=== PATIENT | female | born 1950 | race Caucasian/White ===

== ENCOUNTER 2018-06-21 16:05 | Emergency (ER) | payer OTHER ==
--- NOTE | 2018-06-21 16:45 | ER Document Report ---
ED Medical Screen (RME) - General Chief Complaint: Cold Symptoms Stated Complaint: COUGH,CONGESTION Time Seen by Provider: 06/21/18 16:42 Primary Care Provider: TIFFANY HAWK PA-C [Primary Care Provider] - Follow up as needed Notes: 67-year-old female coming in today with acute onset subjective fevers, chills, body aches, severe fatigue, cough that is not productive. Symptoms similar to this about a week ago. I have treated and performed a rapid initial assessment of this patient. A comprehensive ED assessment and evaluation of the patient, analysis of test results and completion of medical decision making process will be conducted by additional ED providers. PHYSICAL EXAMINATION: GENERAL: Malaised appearance LUNGS: Breath sounds clear to auscultation bilaterally and equal. No wheezes rales or rhonchi. HEART: Regular rate and rhythm without murmurs, rubs, gallops. ABDOMEN: Nontender abdomen Extremities: No cyanosis, clubbing, or edema b/l. NEUROLOGICAL: Normal speech, normal gait. PSYCH: Normal mood, normal affect. TRAVEL OUTSIDE OF THE [place] IN LAST 30 DAYS: No - Related Data Allergies/Adverse Reactions: aspirin [Aspirin] Allergy (Severe, Verified 08/03/14 17:22) Severe GI upset Past Medical History - Past Medical History Cardiac Medical History: Denies: Hx Coronary Artery Disease, Hx Heart Attack, Hx Hypertension Pulmonary Medical History: Denies: Hx Asthma, Hx Bronchitis, Hx COPD, Hx Pneumonia Neurological Medical History: Denies: Hx Cerebrovascular Accident, Hx Seizures Musculoskeltal Medical History: Reports Hx Arthritis - Fingers, hands - Immunizations Hx Diphtheria, Pertussis, Tetanus Vaccination: No Physical Exam - Vital signs Vitals: Temp Pulse Resp BP Pulse Ox 98.8 F 103 H 20 107/72 95 06/21/18 16:18 06/21/18 16:18 06/21/18 16:18 06/21/18 16:18 06/21/18 16:18 Course - Vital Signs Vital signs: Temp Pulse Resp BP Pulse Ox 98.8 F 103 H 20 107/72 95 06/21/18 16:18 06/21/18 16:18 06/21/18 16:18 06/21/18 16:18 06/21/18 16:18 Doctor's Discharge - Discharge Referrals: TIFFANY HAWK PA-C [Primary Care Provider] - Follow up as needed
[2018-06-21 17:17] LABS: ABSOLUTE EOSINOPHILS # (AUTO) 0.1 10^3/uL (0.0-0.6); ABSOLUTE LYMPHOCYTES (AUTO) 1.1 10^3/uL (0.5-4.7); ABSOLUTE MONOCYTES (AUTO) 1.1 10^3/uL (0.1-1.4); ABSOLUTE NEUT (AUTO) 17.5 10^3/uL (1.7-8.2); BASOPHILS % (AUTO) 0.2 % (0-2); EOSINOPHILS % (AUTO) 0.4 % (0-6); HEMATOCRIT 40.4 % (36.0-47.0); HEMOGLOBIN 13.6 g/dL (12.0-15.5); LYMPHOCYTES % (AUTO) 5.4 % (13-45); MEAN CORPUSCULAR HEMOGLOBIN 30.1 pg (27.0-33.4); MEAN CORPUSCULAR HGB CONC 33.6 g/dL (32.0-36.0); MEAN CORPUSCULAR VOLUME 90 fl (80-97); MONOCYTES % (AUTO) 5.5 % (3-13); PLATELET COUNT 434 10^3/uL (150-450); RED BLOOD COUNT 4.51 10^6/uL (3.72-5.28); RED CELL DISTRIBUTION WIDTH 12.8 % (11.5-14.0); SEGMENTED NEUTROPHILS % (AUTO) 88.5 % (42-78); TOTAL CELLS COUNTED % (AUTO) 100 %; WHITE BLOOD COUNT 19.7 10^3/uL (4.0-10.5)
[2018-06-21 17:35] LABS: ALANINE AMINOTRANSFERASE 27 U/L (9-52); ALBUMIN 3.9 g/dL (3.5-5.0); ALKALINE PHOSPHATASE 103 U/L (38-126); ANION GAP 11 (5-19); ASPARTATE AMINO TRANSFERASE 31 U/L (14-36); BILIRUBIN,DIRECT 0.3 mg/dL (0.0-0.4); BILIRUBIN,TOTAL 0.7 mg/dL (0.2-1.3); BLOOD UREA NITROGEN 21 mg/dL (7-20); CALCIUM 9.3 mg/dL (8.4-10.2); CARBON DIOXIDE 28 mmol/L (22-30); CHLORIDE 101 mmol/L (98-107); GLUCOSE 108 mg/dL (75-110); POTASSIUM 4.3 mmol/L (3.6-5.0); SODIUM 139.9 mmol/L (137-145); TOTAL PROTEIN 7.1 g/dL (6.3-8.2)
[2018-06-21 17:36] LABS: A TYPE INFLUENZA AG NEGATIVE (NEGATIVE); B INFLUENZA AG NEGATIVE (NEGATIVE)
--- NOTE | 2018-06-21 17:41 | RADIOLOGY REPORT (SQ) ---
EXAM DESCRIPTION: CHEST 2 VIEWS COMPLETED DATE/TIME: 06/21/2018 5:15 pm REASON FOR STUDY: dyspnea COMPARISON: 08/03/2014 TECHNIQUE: Frontal and lateral radiographic views of the chest acquired. NUMBER OF VIEWS: Two view. LIMITATIONS: None. FINDINGS: LUNGS AND PLEURA: No pneumothorax. Patchy airspace disease in the right lung base. No si gnificant pleural effusion. Similar chronic interstitial changes -emphysema. MEDIASTINUM AND HILAR STRUCTURES: Stable. HEART AND VASCULAR STRUCTURES: Stable. BONES: No acute findings. HARDWARE: None in the chest. OTHER: No other significant finding. IMPRESSION: Patchy airspace disease in the right lung base. No significant pleural effusion. TECHNICAL DOCUMENTATION: JOB ID: [id number] [place]-72 2010 [employer]- All Rights Reserved Reading location - IP/workstation name: [employer]
--- NOTE | 2018-06-21 18:34 | ER Document Report ---
ED General - General Chief Complaint: Cold Symptoms Stated Complaint: COUGH,CONGESTION Time Seen by Provider: 06/21/18 16:42 Primary Care Provider: TIFFANY HAWK PA-C [NO LOCAL MD] - Follow up in 3-5 days Notes: Patient is a 67-year-old female that presents to the emergency department for chief complaint of cough, body aches. Patient's been having symptoms of cough for about 3 days, sore throat, and chest congestion. She is been having associated chills, no recorded fevers. She states that her boyfriend had similar symptoms about a week ago. She has been having nasal congestion as well, runny nose, she has been taking [id number] Robitussin, and cough medicine but not having much relief of her symptoms so she decided come to the emergency department. She denies history of chronic lung disease, was a former smoker, but has no history of COPD or asthma. She denies any significant shortness of breath associated with this, does complain of having some generalized body aches and myalgias, she currently rates her pain as a 2 out of 10 overall. She denies having any nausea, vomiting, admits to a few episodes of diarrhea, but that seemed to have resolved as well. Past Medical History: Hypothyroidism, depression/anxiety Past Surgical History: Thyroidectomy Social History: Former smoker, denies current alcohol or drug use. Family History: Reviewed and noncontributory for presenting illness Allergies: Reviewed, see documented allergy list. REVIEW OF SYSTEMS: Other than noted above, the 12 point review of systems was reviewed with the patient and were negative, all pertinent findings are included in the HPI. PHYSICAL EXAMINATION: Vital signs reviewed, nursing noted reviewed. GENERAL: Well-appearing, well-nourished and in no acute distress. HEAD: Atraumatic, normocephalic. EYES: Eyes appear normal, extraocular movements intact, sclera anicteric, conjunctiva are normal. ENT: nares patent, oropharynx clear without exudates. Moist mucous membranes. NECK: Normal range of motion, supple without lymphadenopathy LUNGS: No acute respiratory distress, wheezing noted throughout all lung vázquez. HEART: Heart rate borderline tachycardic, regular rhythm. ABDOMEN: Soft, nontender, normoactive bowel sounds. No rebound, guarding, or rigidity. No masses appreciated. EXTREMITIES: Nontender, good range of motion, no pitting or edema. NEUROLOGICAL: No focal neurological deficits. Moves all extremities spontaneously Motor and sensory grossly intact on exam. PSYCH: Normal mood, normal affect. SKIN: Warm, Dry, normal turgor, no rashes or lesions noted on exposed skin TRAVEL OUTSIDE OF THE [place] IN LAST 30 DAYS: No - Related Data Allergies/Adverse Reactions: aspirin [Aspirin] Allergy (Severe, Verified 08/03/14 17:22) Severe GI upset Sulfa (Sulfonamide Antibiotics) Allergy (Intermediate, Verified 06/21/18 16:48) Vomiting Past Medical History - Social History Smoking Status: Former Smoker Frequency of alcohol use: None Drug Abuse: None Family History: Reviewed & Not Pertinent Patient has suicidal ideation: No Patient has homicidal ideation: No - Past Medical History Cardiac Medical History: Denies: Hx Coronary Artery Disease, Hx Heart Attack, Hx Hypertension Pulmonary Medical History: Denies: Hx Asthma, Hx Bronchitis, Hx COPD, Hx Pneumonia Neurological Medical History: Denies: Hx Cerebrovascular Accident, Hx Seizures Renal/ Medical History: Denies: Hx Peritoneal Dialysis Musculoskeletal Medical History: Reports Hx Arthritis - Fingers, hands Past Surgical History: Reports: Hx Thyroid Surgery - thyroidectomy - Immunizations Hx Diphtheria, Pertussis, Tetanus Vaccination: No Physical Exam - Vital signs Vitals: Temp Pulse Resp BP Pulse Ox 98.8 F 103 H 20 107/72 95 06/21/18 16:18 06/21/18 16:18 06/21/18 16:18 06/21/18 16:18 06/21/18 16:18 Course - Re-evaluation Re-evalutation: Patient seen and examined vital signs reviewed. Laboratory data and/or imaging were ordered as appropriate for the patient's presenting symptoms and complaint, with consideration of any critical or life threatening conditions that may be associated with their obtained history and exam as noted above. Patient was treated with IV fluids, Toradol for patient's mild headache, she is also given a first dose of IV Rocephin and azithromycin, as her chest x-ray was concerning for pneumonia, she did have a leukocytosis, she was not hypoxic. Patient still having mild headache after the Toradol, therefore she was given some IV magnesium, and Reglan, and at that point her headache is completely resolved. The patient was re-evaluated and was improved, I do feel that the patient can be treated as an outpatient after first dose of IV antibiotics, with azithromycin, and Cefdinir, will be given prescription for both, she is also given an albut funmilayo inhaler at discharge. Evaluation was most consistent with community-acquired pneumonia, advised to follow-up with a primary care physician. Results were discussed with the patient at this point, after careful consideration I feel that that patient can be discharged from the emergency department, the patient was educated treatments and reasons to return to the emergency department based on their presumed diagnosis as noted above, they were advised to followup with a primary care physician in 2-3 days. Patient was agreeable to plan of care. *Note is created using voice recognition software and may contain spelling, syntax or grammatical errors. Laboratory 06/21/18 06/21/18 06/21/18 17:04 17:04 17:04 WBC 19.7 H RBC 4.51 Hgb 13.6 Hct 40.4 MCV 90 MCH 30.1 MCHC 33.6 RDW 12.8 Plt Count 434 Seg Neutrophils % 88.5 H Lymphocytes % 5.4 L Monocytes % 5.5 Eosinophils % 0.4 Basophils % 0.2 Absolute Neutrophils 17.5 H Absolute Lymphocytes 1.1 Absolute Monocytes 1.1 Absolute Eosinophils 0.1 Absolute Basophils 0.0 Sodium 139.9 Potassium 4.3 Chloride 101 Carbon Dioxide 28 Anion Gap 11 BUN 21 H Creatinine 0.87 Est GFR ( Amer) > 60 Est GFR (Non-Af Amer) > 60 Glucose 108 Calcium 9.3 Total Bilirubin 0.7 Direct Bilirubin 0.3 Neonat Total Bilirubin Not Reportable Neonat Direct Bilirubin Not Reportable Neonat Indirect Bili Not Reportable AST 31 ALT 27 Alkaline Phosphatase 103 Total Protein 7.1 Albumin 3.9 Influenza A (Rapid) NEGATIVE Influenza B (Rapid) NEGATIVE Chest X-Ray 06/21/18 00:00 IMPRESSION: Patchy airspace disease in the right lung base. No significant pleural effusion. - Vital Signs Vital signs: Temp Pulse Resp BP Pulse Ox 98.5 F 94 16 111/52 L 94 06/21/18 20:50 06/21/18 20:50 06/21/18 20:50 06/21/18 20:50 06/21/18 20:50 - Laboratory Result Diagrams: 06/21/18 17:04 06/21/18 17:04 Laboratory results interpreted by me: 06/21/18 06/21/18 17:04 17:04 WBC 19.7 H Seg Neutrophils % 88.5 H Lymphocytes % 5.4 L Absolute Neutrophils 17.5 H BUN 21 H Discharge - Discharge Clinical Impression: Community acquired pneumonia Qualifiers: Laterality: right Lung location: lower lobe of lung Qualified Code(s): J18.1 - Lobar pneumonia, unspecified organism Leukocytosis Qualifiers: Leukocytosis type: unspecified Qualified Code(s): D72.829 - Elevated white blood cell count, unspecified Headache Qualifiers: Headache type: unspecified Headache chronicity pattern: unspecified pattern Intractability: not intractable Qualified Code(s): R51 - Headache Condition: Stable Disposition: HOME, SELF-CARE Instructions: Pneumonia ([facility]) Additional Instructions: Please complete the entire course of antibiotics even if you are feeling better sooner. Please use the inhaler, every 4 hours 2 puffs, if needed for wheezing or cough. Prescriptions: RX: Azithromycin [Zithromax 250 mg Tablet] 250 mg PO ASDIR #6 tablet RX: Cefdinir 300 mg PO BID 10 Days #20 capsule Referrals: TIFFANY HAWK PA-C [NO LOCAL MD] - Follow up in 3-5 days
[2018-06-21] MEDS ORDERED: AZITHROMYCIN INJ 500 MG VIAL IV ONE (18:48)
[2018-06-21] MEDS ORDERED: KETOROLAC TROMETHAMINE INJ/PF 30 MG/1 ML SDV IV ONE (18:48)
[2018-06-21] MEDS ORDERED: IPRATROPIUM/ALBUTEROL 0.5-2.5 MG/3 ML AMPUL NEB ONE (18:48)
[2018-06-21] MEDS ORDERED: CEFTRIAXONE 1 GM/D5W RTU 1 GM/50 ML RTUPB IV ONE (18:48)
[2018-06-21] MEDS ORDERED: NORMAL SALINE 500 ML IV ONE (18:48)
[2018-06-21] MEDS ORDERED: ALBUTEROL SULFATE HFA (90 MCG/PUFF) 8 GM MDI (1 MDI/ER DISP) IH ONE (19:46)
[2018-06-21] MEDS ORDERED: MAGNESIUM SULFATE/D5W 1 GM/100 ML RTUPB IV ONE (19:53)
[2018-06-21] MEDS ORDERED: METOCLOPRAMIDE HCL INJ/PF 10 MG/2 ML SDV IV ONE (19:53)
[2018-06-21 20:51] VITALS: BP 111/52
== END 2018-06-21 20:51 | disposition home or self-care (01) ==
LOC: ER 16:05
DX: J18.1 Lobar pneumonia, unspecified organism (principal); D72.829 Elevated white blood cell count, unspecified; R51 Headache; R05 Cough; R09.81 Nasal congestion; M79.10 Myalgia, unspecified site; R09.89 Other specified symptoms and signs involving the circulatory and respiratory systems; Z87.891 Personal history of nicotine dependence
CPT/HCPCS: 94640; 99283; 96375; 96365; 96367; 36415; 85025; 80053; 87804; 71046; J1885; J2765; J3475; J7040; J0456; J0696; J3490; J7620

== ENCOUNTER 2018-06-25 10:35 | Emergency (ER) | payer OTHER ==
[2018-06-25 11:03] VITALS: BP 130/54
--- NOTE | 2018-06-25 12:07 | ER Document Report ---
HPI - HPI Patient complains to provider of: Back to work note Time Seen by Provider: 06/25/18 12:02 Quality of pain: No pain Pain Level: Denies Context: Patient presents today for request for back to work note. She reports she was treated for pneumonia on Friday by Dr. Contreras. Reports cough is better. She reports she is feeling much better denies fever vomiting diarrhea. Is requesting a work note. Associated Symptoms: None Past Medical History - General Information source: Patient - Social History Smoking Status: Former Smoker Cigarette use (# per day): No Frequency of alcohol use: None Drug Abuse: None Occupation: Works in a [employer] plant Family History: Reviewed & Not Pertinent Patient has suicidal ideation: No Patient has homicidal ideation: No - Past Medical History Cardiac Medical History: Denies: Hx Coronary Artery Disease, Hx Heart Attack, Hx Hypertension Pulmonary Medical History: Denies: Hx Asthma, Hx Bronchitis, Hx COPD, Hx Pneumonia Neurological Medical History: Denies: Hx Cerebrovascular Accident, Hx Seizures Renal/ Medical History: Denies: Hx Peritoneal Dialysis Musculoskeletal Medical History: Reports Hx Arthritis - Fingers, hands Past Surgical History: Reports: Hx Thyroid Surgery - thyroidectomy - Immunizations Hx Diphtheria, Pertussis, Tetanus Vaccination: No Vertical Provider Document - CONSTITUTIONAL Agree With Documented VS: Yes Exam Limitations: No Limitations General Appearance: WD/WN, No Apparent Distress - INFECTION CONTROL TRAVEL OUTSIDE OF THE [place] IN LAST 30 DAYS: No - HEENT HEENT: Atraumatic, Normocephalic - NECK Neck: Supple - RESPIRATORY Respiratory: No Respiratory Distress - CARDIOVASCULAR Cardiovascular: Regular Rate - MUSCULOSKELETAL/EXTREMETIES Musculoskeletal/Extremeties: MAEW, FROM - NEURO Level of Consciousness: Awake, Alert, Appropriate Motor/Sensory: No Motor Deficit - DERM Integumentary: Warm, Dry Course - Re-evaluation Re-evalutation: 06/25/18 12:13 Patient was instructed to make sure she follows up with her primary care provider as scheduled. - Vital Signs Vital signs: Temp Pulse Resp BP Pulse Ox 98.4 F 72 14 130/54 H 97 06/25/18 11:00 06/25/18 11:00 06/25/18 11:00 06/25/18 11:00 06/25/18 11:00 Discharge - Discharge Clinical Impression: back to work note Condition: Stable Disposition: HOME, SELF-CARE Additional Instructions: You have been evaluated today for a request for back to work note. You were treated for pneumonia this past week Continue to take your medications and follow-up with your doctor at 1315 today as scheduled Forms: Special Work Note, Return to Work
== END 2018-06-25 12:17 | disposition home or self-care (01) ==
LOC: ER 10:35
DX: J18.9 Pneumonia, unspecified organism (principal); Z87.891 Personal history of nicotine dependence
CPT/HCPCS: 99281